=== PATIENT | female | born 1985 | race Caucasian/White ===

== ENCOUNTER 2022-04-14 13:35 | Emergency (ER) | payer BC, MEDICAID ==
[~2022-04-14] VITALS: Ht 167.6 cm; Wt 72.6 kg
[2022-04-14 13:49] VITALS: BP_SYST 122
--- NOTE | 2022-04-14 14:50 | NUR ---
Ashley pettit in [facility], [place] - 04/14/22 at [email or web address] Lares evaluating patient at bedside
--- NOTE | 2022-04-14 15:00 | NUR ---
DR STEWART SPEAKING WITH PT IN TRIAGE ROOM
--- NOTE | 2022-04-14 15:12 | NUR ---
Pt brought by self, A&Ox4, pt presents to ER with severe abdominal pain and nausea, pt states she has an abdominal hernia, skin pink and warm, cap refill <3, VSS
--- NOTE | 2022-04-14 15:14 | NUR ---
Patient to ER bed H1 to gown for evaluation. Side rails up.
[2022-04-14] MEDS ORDERED: ONDANSETRON HCL 4 MG/2 ML VIAL IVP ONE (15:30)
[2022-04-14] MEDS ORDERED: fentaNYL CITRATE/PF 100 MCG/2 ML AMP IVP ONE (15:30)
[2022-04-14 15:39] LABS: BASOPHILS % (AUTO) 0.4 % (0.0-2.0); EOSINOPHILS # (AUTO) 0.1 K/uL (0.0-0.4); EOSINOPHILS % (AUTO) 1.5 % (0.0-4.0); HEMATOCRIT 37.4 % (36-48); HEMOGLOBIN 13.1 g/dL (12.0-16.0); LYMPHOCYTES # (AUTO) 1.5 K/uL (1.0-5.5); LYMPHOCYTES % (AUTO) 17.2 % (20.5-51.5); MEAN CORPUSCULAR HEMOGLOBIN 29 pg (27-31); MEAN CORPUSCULAR HGB CONC 35 % (32-36); MEAN CORPUSCULAR VOLUME 84 fL (79.0-98.0); MONOCYTES # (AUTO) 0.4 K/uL (0.0-1.0); NEUTROPHILS # (AUTO) 6.8 K/uL (1.8-7.7); NEUTROPHILS % (AUTO) 75.9 % (40.0-70.0); PLATELET COUNT (AUTO) 269 K/uL (130-430); RED BLOOD CELL COUNT(AUTO) 4.44 MIL/uL (4.2-6.2); RED CELL DISTRIBUTION WIDTH 13.6 % (9.0-15.0); WHITE BLOOD COUNT (AUTO) 8.9 K/uL (4.8-10.8)
--- NOTE | 2022-04-14 15:46 | NUR ---
DR STEWART ABLE TO REDUCE HERNIA AT THIS TIME. PT TOLERATED IT WELL.
[2022-04-14] MEDS ORDERED: IBUP-1969 PO (15:51)
[2022-04-14] MEDS ORDERED: HYDR-3917 PO (15:52)
[2022-04-14 15:58] LABS: CALCIUM 9.5 mg/dL (8.4-11.0); CREATININE 0.92 mg/dL (0.55-1.30)
[2022-04-14 16:04] LABS: TOTAL BILIRUBIN 0.3 mg/dL (0.0-1.0)
[2022-04-14 16:49] VITALS: BP_SYST 122
--- NOTE | 2022-04-14 16:51 | NUR ---
Patient given written and verbal discharge instructions and verbalizes understanding. ER MD discussed with patient the results and treatment provided. Patient in stable condition. ID arm band removed. Rx of Hydrocodone and Ibuprofen given. Patient educated on pain management and to follow up with PMD. Pain Scale 2/10. Opportunity for questions provided and answered. Medication side effect fact sheet provided.
== END 2022-04-14 16:51 | disposition home or self-care (01) ==
LOC: SED 13:35
DX: K42.9 Umbilical hernia without obstruction or gangrene (principal); R10.33 Periumbilical pain; R11.0 Nausea; R53.1 Weakness; Z79.899 Other long term (current) drug therapy
CPT/HCPCS: 99284; 96374; 96375; 80053; 83690; 85025; 36415; 81025; J2405; J3010